=== PATIENT | male | born 1975 | race African-American/Black ===

== ENCOUNTER 2016-09-21 12:53 | Emergency (ER) | payer MEDICARE, OTHER ==
[~2016-09-21] VITALS: Ht 175.3 cm; Wt 89.5 kg
[2016-09-21 13:05] VITALS: BP 147/101
[2016-09-21 13:40] LABS: Urine Bilirubin Negative (Negative); Urine Blood Negative /uL (Negative); Urine Color Yellow (Yellow); Urine Glucose Normal (Normal); Urine Ketone Negative (Negative); Urine Mucus FEW (None Seen); Urine Nitrite Negative (Negative); Urine RBC 1 /hpf (0 - 3); Urine Squamous Epithelial Cell FEW /hpf (<5); Urine Urobilinogen Normal (Negative)
== END 2016-09-21 15:31 | disposition home or self-care (01) ==
LOC: ER 12:53
DX: N34.2 Other urethritis (principal); F17.210 Nicotine dependence, cigarettes, uncomplicated
CPT/HCPCS: 81001

== ENCOUNTER 2017-09-30 08:57 | Emergency (ER) | payer OTHER ==
[~2017-09-30] VITALS: Ht 177.8 cm; Wt 88.5 kg
[2017-09-30 09:07] VITALS: BP 170/98
[2017-09-30] MEDS ORDERED: cefTRIAXone SODIUM 250 MG VL IM ONE (10:00)
[2017-09-30] MEDS ORDERED: AZITHROMYCIN 250 MG TAB PO ONE (10:00)
== END 2017-09-30 10:29 | disposition home or self-care (01) ==
LOC: ER 08:57
DX: A64 Unspecified sexually transmitted disease (principal)
CPT/HCPCS: 81002; 96372; 99283; J0696